=== PATIENT | female | born 1985 | race Asian ===

== ENCOUNTER 2022-08-22 07:58 | Day surgery (SDC) | payer MEDICAID ==
[~2022-08-22] VITALS: Ht 165.1 cm; Wt 64.9 kg
[2022-08-22] MEDS ORDERED: SIMETHICONE 80 MG TAB.CHEW PO ONE (10:50)
[2022-08-22] MEDS ORDERED: ONDANSETRON HCL 4 MG/2 ML VIAL IVP ONE (10:50)
[2022-08-22] MEDS ORDERED: SIMETHICONE 80 MG TAB.CHEW ONE (10:57)
[2022-08-22] MEDS ORDERED: ONDANSETRON HCL 4 MG/2 ML VIAL ONE (10:57)
[2022-08-22 13:13] VITALS: BP_SYST 85
== END 2022-08-22 11:15 | disposition home or self-care (01) ==
LOC: SDS 07:58
PROVIDERS: ATTEND Internal Medicine
DX: K92.1 Melena (principal); K59.09 Other constipation; K64.8 Other hemorrhoids; F17.210 Nicotine dependence, cigarettes, uncomplicated; Z20.822 Contact with and (suspected) exposure to COVID-19
CPT/HCPCS: 45378; 87426; 84703; 36415; 99153; 99152; G0378; J2405